=== PATIENT | male | born 1970 | race Caucasian/White ===

== ENCOUNTER 2022-07-31 21:42 | Emergency (ER) | payer OTHER, SELFPAY ==
--- NOTE | ~2022-07-31 | CT_ITS ---
EXAMINATION: CT CERVICAL SPINE WITHOUT CONTRAST CLINICAL INFORMATION: C5-6 radiculopathy COMPARISON: 09/05/2008 report TECHNIQUE: Multidetector helical imaging was performed through the cervical spine. Coronal and sagittal reformatted images were created. This CT examination was performed using dose optimization techniques as appropriate, variously including the following: *Automated exposure control *Adjustment of mA and/or kV according to patient size (this includes techniques or standardized protocols for targeted exams where dose is matched to indication/reason for exam; i.e. extremities or head) *Use of iterative reconstruction technique DLP: 464 mGy-cm FINDINGS: There is anatomic alignment of the vertebral bodies and posterior elements. There is degenerative change at the atlantodens articulation. Vertebral body heights are maintained. There is mild disc space narrowing at C3-C4 and C5-C6. Scattered endplate osteophytes throughout the cervical spine. Mild right-sided bony foraminal narrowing at C3-C4. Mild left-sided bony foraminal narrowing at C5-C6. No evidence of acute fracture. No prevertebral soft tissue swelling. Visualized portions of the lung apices demonstrate mild emphysema. The thyroid gland is unremarkable. CT/CT cervical spine wo IV con IMPRESSION: No acute findings of the cervical spine. Relatively mild degenerative changes as noted above, including mild left-sided bony foraminal narrowing at C5-C6.
--- NOTE | 2022-07-31 22:43 | ECG_ITS ---
Test Reason : right arm pain Blood Pressure : / mmHG Vent. Rate : 058 BPM Atrial Rate : 058 BPM P-R Int : 154 ms QRS Dur : 096 ms QT Int : 394 ms P-R-T Axes : 060 022 044 degrees QTc Int : 386 ms Sinus bradycardia Incomplete right bundle branch block Borderline ECG When compared with ECG of 02-FEB-2014 17:22, No significant change was found Referred By: Generic ED Physician Electronically Signed By:ASHLEY VILCHIS MD
[2022-07-31 22:48] VITALS: BP 143/74; PULSE 70; RESP 17; TEMP 36.8; O2SAT 98; BMI 24.4
[2022-07-31 23:02] LABS: Hematocrit 37.3 % (42.0-52.0); Hemoglobin 12.7 g/dl (14.0-18.0); Mean Platelet Volume 9.7 fL (9.4-12.4); Platelet Count 208 X10*3/uL (160-400); White Blood Count 7.8 X10*3/uL (4.8-10.8)
[2022-07-31 23:20] LABS: Alanine Aminotransferase 26 U/L (0-40); Albumin Level 4.1 g/dL (3.5-5.0); Alkaline Phosphatase 64 U/L (39-117); Anion Gap 13 (12-20); Aspartate Amino Transferase 35 U/L (5-37); Bilirubin Total < 0.2 mg/dL (0.0-1.0); Blood Urea Nitrogen 11 mg/dL (9-16); Calcium 9.3 mg/dL (8.4-10.2); Carbon Dioxide 27 mmol/L (22-29); Chloride 104 mmol/L (96-108); Creatinine Clr Calc Pharmacy 62.6; Estimated Glomerular Filt Rate 50; Glucose Random 96 mg/dL (60-115); Sodium 140 mmol/L (135-145); Total Protein 7.4 g/dL (6.5-8.0)
--- NOTE | 2022-08-01 00:07 | ED.GENADULT ---
HPI - General Adult General Chief complaint: General Medical Stated complaint: Right arm pain Time Seen by Provider: 08/01/22 00:06 Source: patient Mode of arrival: ambulatory Limitations: no limitations History of Present Illness HPI narrative: Patient complaining of pain in the right and neck pain for last few days feels tingling sensation no weakness no injuries Related Data Previous Rx's Medication Instructions Recorded prednisone 20 mg tablet 40 mg PO DAILY #10 tabs 08/01/22 tramadol 50 mg tablet 50 mg PO Q6H PRN pain #20 tabs 08/01/22 tramadol 50 mg tablet 50 mg PO Q8H PRN severe pain 08/01/22 (scale score 7-10) #20 tabs Allergies Allergy/AdvReac Type Severity Reaction Status Date / Time No Known Allergies Allergy Unverified 07/07/20 17:28 [No Known Allergies*] Review of Systems Review of Systems: Yes all other systems are reviewed and are negative [facility] Social History Social History Advance Directives: No Advance Directives Information Provided: No Physical Exam ED Vital Signs: Vital Signs - 24 hr 07/31/22 22:48 Temperature 98.2 F Pulse Rate 70 Respiratory Rate 17 Blood Pressure 143/74 H Pulse Oximetry 98 Oxygen Delivery Method Room Air BMI result Body Mass Index 24.4 Appearance: Alert. Oriented X3. No acute distress. Eyes: PERRLA, No Nystagmus ENT: Pharynx normal. Oral Mucosa moist Neck: Normal inspection. Neck supple. Paraspinal tenderness+ no midline tenderness CVS: Normal heart rate and rhythm. Pulses normal. Respiratory: No respiratory distress. Equal air entry bilateral, no wheezing/rales/rhonchi Abdomen: Soft and nontender. Bowel sounds are present, no mass palpable, no CVA tenderness Skin: Skin warm and dry. Normal skin color. Normal skin turgor. Extremities: No lower extremity edema. No calf tenderness Neuro: Oriented X 3. No motor deficit. No sensory deficit.No cerebellar signs , cranial nerves II-XII intact Medical Decision Making MDM Narrative Medical decision making narrative: Patient with right arm pain with arthritic changes likely patient has cervical radiculopathy from chronic arthritis advise follow-up with neurosurgeon Lab Data Result diagrams: 07/31/22 22:57 07/31/22 22:57 Labs: Lab Results 07/31/22 07/31/22 Range/Units 22:57 22:57 WBC 7.8 (4.8-10.8) X10*3/uL RBC 4.10 L (4.60-5.80) X10*6/uL Hgb 12.7 L (14.0-18.0) g/dl Hct 37.3 L (42.0-52.0) % MCV 91.0 (80.0-98.0) fL MCH 31.0 (27.0-33.0) pg MCHC 34.0 (31.0-36.0) g/dl RDW 12.0 (11.0-16.0) % Plt Count 208 (160-400) X10*3/uL MPV 9.7 (9.4-12.4) fL Absolute Nucleated RBC 0.000 (0.0-0.012) X10*3/uL Nucleated RBC % (auto) 0.0 (0.0-0.2) /100WBC Sodium 140 (135-145) mmol/L Potassium 4.0 (3.3-5.1) mmol/L Chloride 104 (96-108) mmol/L Carbon Dioxide 27 (22-29) mmol/L Anion Gap 13 (12-20) BUN 11 (9-16) mg/dL Creatinine 1.47 H (0.5-1.4) mg/dL Estim Creat Clear Calc 62.6 Estimated GFR 50 Random Glucose 96 (60-115) mg/dL Calcium 9.3 (8.4-10.2) mg/dL Total Bilirubin < 0.2 (0.0-1.0) mg/dL AST 35 (5-37) U/L ALT 26 (0-40) U/L Alkaline Phosphatase 64 (39-117) U/L Total Protein 7.4 (6.5-8.0) g/dL Albumin 4.1 (3.5-5.0) g/dL Discharge Plan Discharge Clinical Impression: Cervical radiculopathy at C5 Patient Disposition: Home, Self-Care Instructions: Cervical Radiculopathy (ED) Additional Instructions: Take pain medication as advised Prednisone as prescribed Follow with PCP if not better Prescriptions: New prednisone 20 mg tablet 40 mg PO DAILY Qty: 10 0RF tramadol 50 mg tablet 50 mg PO Q6H PRN (Reason: pain) Qty: 20 0RF tramadol 50 mg tablet 50 mg PO Q8H PRN (Reason: severe pain (scale score 7-10)) Qty: 20 0RF Interventions: ED Discharge Assessment Last Done: 08/01/22 01:34 Discharge Date/Time: 08/01/22 01:36
[2022-08-01 00:09] VITALS: BP 141/76; PULSE 73; RESP 16; O2SAT 97
[2022-08-01] MEDS: traMADoL HCL 50 MG TABLET PO (01:15)
[2022-08-01] MEDS: dexAMETHasone 2 MG TABLET 10 MG PO (01:16)
== END 2022-08-01 01:36 | disposition home or self-care (01) ==
PROVIDERS: Emergency Provider Internal Medicine
DX: M54.12 Radiculopathy, cervical region (principal); M54.2 Cervicalgia; M79.601 Pain in right arm; Z79.899 Other long term (current) drug therapy
CPT/HCPCS: 36415; 72125; 80053; 85027; 93005; 99284; J8540

== ENCOUNTER 2023-06-28 14:10 | Outpatient (REF) | payer MEDICAID, SELFPAY ==
[2023-06-28 16:10] LABS: Appearance Urine Clear; Color Urine Yellow; Glucose Urine UA Negative (Negative); Leukocyte Esterase Urine Negative (Negative); Nitrite Urine Negative (Negative); PH 6.5 (5.0-9.0); Specific Gravity - Urine 1.015 (1.005-1.025); UMIC TRIGGER UACC YES; Urine Blood Trace (Negative); Urine Ketones Negative (Negative); Urine Protein Negative (Neg-Trace)
[2023-06-28 16:10] LABS: MANUAL DIFF FLAG NO
[2023-06-28 16:16] LABS: Bacteria Urine None Seen (None Seen); Hyaline Casts Urine 0-2 /LPF (0-2); Squamous Epithelial Cell Urine 0-2 /HPF (0-2); WBC Urine 0-5 /HPF (0-5)
[2023-06-28 16:22] LABS: Estimated Average Glucose 105 mg/dL; Hemoglobin A1c % 5.3 % (<6.0)
[2023-06-28 16:24] LABS: Basophils Absolute Auto 0.1 X10*3/uL (0.0-0.2); Basophils Percent Auto 0.6 % (0-2); Eosinophils Absolute Auto 0.4 X10*3/uL (0.0-0.4); Eosinophils Percent Auto 5.1 % (0-4); Hematocrit 44.5 % (42.0-52.0); Hemoglobin 14.9 g/dl (14.0-18.0); Imm Gran Abs Auto 0.02 X10*3/uL (0.00-0.03); Imm Gran Pct Auto 0.2 % (0.0-0.4); Lymphocytes Percent Auto 23.7 % (20-40); Mean Corpuscular HGB Conc 33.5 g/dl (31.0-36.0); Mean Corpuscular Hemoglobin 30.6 pg (27.0-33.0); Mean Corpuscular Volume 91.4 fL (80.0-98.0); Mean Platelet Volume 10.4 fL (9.4-12.4); Monocytes Absolute Auto 0.7 X10*3/uL (0.1-1.2); Monocytes Percent Auto 8.1 % (2-11); Neutrophils Absolute Auto 5.2 x10*3/uL (2.0-8.3); Neutrophils Percent Auto 62.3 % (45-73); Platelet Count 233 X10*3/uL (160-400); Red Blood Count 4.87 X10*6/uL (4.60-5.80); White Blood Count 8.4 X10*3/uL (4.8-10.8)
[2023-06-28 16:27] LABS: INTERNATIONAL NORM RATIO 0.9 (0.9-1.1); Prothrombin Time 10.6 SEC (11.1-13.3)
[2023-06-28 16:37] LABS: Alanine Aminotransferase 60 U/L (0-40); Albumin Level 4.5 g/dL (3.5-5.0); Alkaline Phosphatase 99 U/L (39-117); Anion Gap 11 (12-20); Aspartate Amino Transferase 64 U/L (5-37); Bilirubin Total 0.7 mg/dL (0.0-1.0); Blood Urea Nitrogen 11 mg/dL (9-16); Calcium 10.1 mg/dL (8.4-10.2); Carbon Dioxide 27 mmol/L (22-29); Chloride 104 mmol/L (96-108); Cholesterol 130 mg/dL (<200); Estimated Glomerular Filt Rate > 60; Glucose Random 100 mg/dL (60-115); HDL Cholesterol 52 mg/dL (>40); LDL Cholesterol Calculated 56 mg/dL (<100); Potassium 4.1 mmol/L (3.3-5.1); Sodium 138 mmol/L (135-145); Total Protein 8.4 g/dL (6.5-8.0); Triglycerides 110 mg/dL (<150)
[2023-06-28 16:54] LABS: Vitamin D 25-OH Total 52.9 ng/mL (>30)
[2023-06-28 17:05] LABS: Prostate Specific Antigen 0.81 ng/mL (<0.05-4.0)
[2023-06-28 17:13] LABS: Vitamin B12 276 pg/mL (200-900)
[2023-06-29 09:20] LABS: ~Hepatitis C Antibody Reactive (Nonreactive)
[2023-06-29 09:46] LABS: HBc Num1 0.41 S/CO (0.00-0.79); HBsAGNum1 0.31 S/CO (0.00-0.99); HIV AB/AG Nonreactive (Nonreactive); HIV Num 1 0.05 S/CO (0.00-0.99); Hepatitis B Core Antibody Nonreactive (Nonreactive); Hepatitis B Surface Antigen Negative (Negative); ~Hepatitis B Surface Antibody REACTIVE (Nonreactive)
[2023-07-01 11:10] LABS: RPR Rapid Plasma Reagin NON-REACTIVE (NON-REACTIVE)
[2023-07-02 11:09] LABS: TS Negative Control Passed; TS Panel A 0; TS Panel B 0; TS Positive Control Passed; TSpotTB Negative (Negative)
[2023-07-03 17:24] LABS: HCV Log PCR 7.21 Log IU/mL (NOT DETECTED); HepC Viral Load 16100000 IU/mL (NOT DETECTED)
== END 2023-06-28 14:11 | disposition home or self-care (01) ==
LOC: HO.HHCL 14:10
PROVIDERS: Visit Provider Emergency Medicine
DX: Z12.5 Encounter for screening for malignant neoplasm of prostate (principal); Z11.4 Encounter for screening for human immunodeficiency virus [HIV]; R20.2 Paresthesia of skin
CPT/HCPCS: 36415; 80053; 80061; 81001; 82306; 82607; 83036; 84153; 84443; 85025; 85610; 86481; 86592; 86704; 86706; 86803; 87340; 87389; 87522

== ENCOUNTER 2023-08-19 15:29 | Outpatient (REF) | payer MEDICAID, SELFPAY ==
[2023-08-19 17:54] LABS: Alanine Aminotransferase 35 U/L (0-40); Albumin Level 4.5 g/dL (3.5-5.0); Alkaline Phosphatase 61 U/L (39-117); Anion Gap 13 (12-20); Aspartate Amino Transferase 33 U/L (5-37); Bilirubin Total 0.5 mg/dL (0.0-1.0); Blood Urea Nitrogen 7 mg/dL (9-16); Calcium 9.6 mg/dL (8.4-10.2); Carbon Dioxide 26 mmol/L (22-29); Chloride 104 mmol/L (96-108); Estimated Glomerular Filt Rate > 60; Glucose Random 99 mg/dL (60-115); Potassium 4.1 mmol/L (3.3-5.1); Sodium 139 mmol/L (135-145); Total Protein 8.4 g/dL (6.5-8.0)
[2023-08-19 17:58] LABS: Appearance Urine Clear; Color Urine Yellow; Glucose Urine UA Negative (Negative); Leukocyte Esterase Urine Negative (Negative); Nitrite Urine Negative (Negative); PH 6.5 (5.0-9.0); UMIC TRIGGER UA YES; Urine Blood Trace (Negative); Urine Ketones Negative (Negative); Urine Protein Negative (Neg-Trace)
[2023-08-19 18:01] LABS: Bacteria Urine None Seen (None Seen); Hyaline Casts Urine 0-2 /LPF (0-2); Squamous Epithelial Cell Urine 0-2 /HPF (0-2); WBC Urine 0-5 /HPF (0-5)
[2023-08-20 03:13] LABS: CT PCR NOT DETECTED (Not Detect.); NG PCR NOT DETECTED (Not Detect.)
[2023-08-20 08:21] LABS: Hepatitis A Antibody IgG REACTIVE (Nonreactive); ~Hepatitis A Antibody IgG 10.71 S/CO (0.00-0.99)
[2023-08-24 10:28] LABS: Hepatitis C Genotype 1a
[2023-08-24 16:28] LABS: FIB-ALT 30 U/L (9-46); FIB-Alpha-2-Macroglobulin 220 mg/dL (106-279); FIB-Apolipoprotein A1 165 mg/dL (94-176); FIB-GGT 39 U/L (3-95); FIB-Haptoglobin 155 mg/dL (43-212); FIB-Total Bilirubin 0.4 mg/dL (0.2-1.2); Liver Fibrosis Score 0.21; Liver Fibrosis Stage F0; Nec Inflam Act Grade A0; Nec Inflam Act Score 0.13
== END 2023-08-19 15:30 | disposition home or self-care (01) ==
LOC: HO.HHCL 15:29
PROVIDERS: Visit Provider Student in an Organized Health Care Education/Training Program
DX: B17.10 Acute hepatitis C without hepatic coma (principal)
CPT/HCPCS: 0353U; 36415; 80053; 81001; 81596; 86708; 87902

== ENCOUNTER 2023-09-26 09:19 | Outpatient (REF) | payer MEDICAID, SELFPAY ==
--- NOTE | ~2023-09-26 | US_ITS ---
EXAMINATION: US COMPLETE ABDOMEN WITH LIVER ELASTOGRAPHY CLINICAL INFORMATION: Acute appendicitis without hepatic coma. COMPARISON: None available. TECHNIQUE: Real-time imaging of the abdominal viscera. Noninvasive ultrasound liver fibrosis assessment is performed using Elke ElastPQ point quantification shear wave elastography (2D-SWE) with a C5-2 MHz transducer. Multiple elastography samples are obtained. FINDINGS: PANCREAS: Normal. The visualized pancreatic head and body are normal in appearance. The remainder of the pancreas is obscured from visualization by the overlying bowel gas. ABDOMINAL AORTA: The proximal and distal aortic segments are normal in caliber. The mid segment is obscured by overlapping bowel gas. INFERIOR VENA CAVA: Visualized portions are normal. LIVER: The liver demonstrates normal size, contour and increased echogenicity. No focal lesion or intrahepatic biliary duct dilatation. The right lobe measures 16.2 cm in length. The left lobe measures 9.3 cm in length. Portal flow is towards the liver (hepatopetal). Shear wave liver elastography median stiffness is 1.53 m/s (reference: normal median stiffness is 1.3 m/s or less). IQR/median stiffness to assess sampling precision is 0.22 (reference: good quality data set is IQR/median stiffness of 0.15 or less). GALLBLADDER: Normal. The gallbladder is physiologically distended without evidence of stones, sludge, polyps, wall thickening or pericholecystic fluid. COMMON BILE DUCT: Normal in caliber measuring 0.2 cm in diameter. RIGHT KIDNEY: Normal. No hydronephrosis. No renal calculi or focal parenchymal lesions. The kidney measures 9.3 cm in maximum dimension. LEFT KIDNEY: Normal. No hydronephrosis. No renal calculi or focal parenchymal lesions. The kidney measures 10.5 cm in maximum dimension. SPLEEN: Normal. The spleen measures 10.5 cm in maximum dimension. FREE FLUID: None. US/US abdomen comp w elastography IMPRESSION: 1. There is generalized increase in hepatic echotexture, consistent with fatty infiltration or hepatocellular disease. Please correlate clinically. No focal hepatic mass or intrahepatic biliary dilatation is seen. 2. Liver elastography: Although measurements appear to rule out compensated advanced chronic liver disease, there is statistical variability of the sampling which decreases accuracy. 3. Technically limited ultrasound examination of the abdominal great vessels. REFERENCE: Society of Radiologists in Ultrasound Liver Stiffness Thresholds (2020): LIVER STIFFNESS THRESHOLDS: *Liver Stiffness equal or less than 1.3 m/s: High probability of being normal. *Liver Stiffness less than 1.7 m/s: In the absence of other known clinical signs, rules out compensated advanced chronic liver disease. *Liver Stiffness 1.7-2.1 m/s: Suggestive of compensated advanced chronic liver disease but need further test for confirmation. *Liver Stiffness over 2.1 m/s: Rules in compensated advanced chronic liver disease. *Liver Stiffness over 2.4 m/s: Suggestive of clinically significant portal hypertension. QUALITY OF DATA SET: *IQR/Median value equal or less than 0.15 implies a quality data set. *IQR/Median value over 0.15 implies a poor quality data set. SIGNIFICANT CHANGE FROM PRIOR EXAM: Significant change if liver stiffness measurement is 10% or greater from prior exam. OTHER CONSIDERATIONS: The stage of liver fibrosis may be overestimated in the setting of acute hepatitis, liver inflammation, elevated liver function tests, hepatic vascular congestion, obstructive cholestasis, non-fasting state, and infiltrative diseases such as amyloidosis and lymphoma. In some patients with NAFLD, the liver stiffness thresholds for compensated advanced chronic liver disease may be lower. In causes other than viral hepatitis and NAFLD, liver stiffness thresholds are not well established.
== END 2023-09-26 09:20 | disposition home or self-care (01) ==
LOC: HO.US 09:19
PROVIDERS: Visit Provider Student in an Organized Health Care Education/Training Program
DX: B17.10 Acute hepatitis C without hepatic coma (principal)
CPT/HCPCS: 76705; 76981

== ENCOUNTER 2023-11-18 14:25 | Emergency (ER) | payer MEDICAID, SELFPAY ==
--- NOTE | ~2023-11-18 | XR_ITS ---
EXAMINATION: XR HUMERUS, SHOULDER , RIGHT CLINICAL INFORMATION: Fall COMPARISON: None available at the time of this dictation. TECHNIQUE: Frontal lateral and scapular Y-view right shoulder, frontal and lateral humerus upper and lower total of 7 views FINDINGS: BONES: There is a radiodense line through humeral head, cannot rule out nondisplaced impaction fracture injury. No displaced fractures. Included adjacent clavicle, scapula, elbow are intact. JOINTS: Glenohumeral joint is properly positioned. There is mild degenerative osteoarthritis of the acromioclavicular joint. SOFT TISSUE AND INCLUDED LUNG: Normal. XR/XR shoulder RT min 2V IMPRESSION: * Radiodense line through the humeral head, cannot rule out nondisplaced impaction fracture. Please correlate with area of tenderness, May consider correlation with follow-up cross-sectional imaging preferably MRI. If not performed consider follow-up x-ray in 3 days * No dislocation. * Degenerative osteoarthritis of AC joint.
--- NOTE | ~2023-11-18 | XR_ITS ---
EXAMINATION: XR HUMERUS, SHOULDER , RIGHT CLINICAL INFORMATION: Fall COMPARISON: None available at the time of this dictation. TECHNIQUE: Frontal lateral and scapular Y-view right shoulder, frontal and lateral humerus upper and lower total of 7 views FINDINGS: BONES: There is a radiodense line through humeral head, cannot rule out nondisplaced impaction fracture injury. No displaced fractures. Included adjacent clavicle, scapula, elbow are intact. JOINTS: Glenohumeral joint is properly positioned. There is mild degenerative osteoarthritis of the acromioclavicular joint. SOFT TISSUE AND INCLUDED LUNG: Normal. XR/XR humerus RT IMPRESSION: * Radiodense line through the humeral head, cannot rule out nondisplaced impaction fracture. Please correlate with area of tenderness, May consider correlation with follow-up cross-sectional imaging preferably MRI. If not performed consider follow-up x-ray in 3 days * No dislocation. * Degenerative osteoarthritis of AC joint.
[2023-11-18 14:28] VITALS: BP 137/84; PULSE 59; RESP 17; TEMP 36.3; O2SAT 99; BMI 25.1
--- NOTE | 2023-11-18 14:29 | ED.UPPEXIN ---
HPI - Extremity Injury (Upper) General Chief Complaint: Extremity Injury, Upper Stated Complaint: r arm inj fell 4 days ago Time Seen by Provider: 11/18/23 16:31 Source: patient Mode of arrival: ambulatory Limitations: no limitations History of Present Illness HPI narrative: 53-year-old male with no significant pmhx presents to the ED today for evaluation of right upper arm and shoulder pain s/p mechanical slip and fall while walking on an icy street 5 days ago. Upon slipping, he fell onto his right side. Denies head strike or LOC. Not on AC. Reports immediate pain to right upper arm. Has been taking [id number] NSAIDs and using icy hot without relief. Moving his right upper extremity exacerbates the pain. Pain is localized to his shoulder region. Denies fever, chills, N/V, neck or back pain, numbness, weakness, tingling of the right upper extremity. Denies new injury/trauma since the fall. Related Data Previous Rx's Medication Instructions Recorded prednisone 20 mg tablet 40 mg (2 x 20 mg) PO DAILY #10 tabs 08/01/22 tramadol 50 mg tablet 50 mg PO Q6H PRN pain #20 tabs 08/01/22 tramadol 50 mg tablet 50 mg PO Q8H PRN severe pain 08/01/22 (scale score 7-10) #20 tabs naproxen 500 mg tablet 500 mg PO Q8-12H PRN pain (scale 11/18/23 score 4-6) #30 tabs prednisone 50 mg tablet 50 mg PO DAILY 5 days #5 tabs 11/18/23 Allergies Allergy/AdvReac Type Severity Reaction Status Date / Time No Known Allergies Allergy Unverified 07/07/20 17:28 [No Known Allergies*] Review of Systems Review of Systems: Constitutional: No fever, chills, fatigue, night sweats, weight changes ENT/Mouth: No ear pain, hearing loss, nasal congestion, sinus pain, rhinorrhea, sore throat Eyes: No eye pain, swelling, redness, vision changes, discharge Cardio: No chest pain, palpitations, ALLEN, orthopnea, peripheral edema Pulm: No SOB, cough, sputum, wheezing, dyspnea, hemoptysis GI: No nausea, vomiting, hematemesis, abdominal pain, diarrhea, constipation, hematochezia, melena : No irregular bleeding, dysuria, frequency, urgency, hesitancy, hematuria, flank pain, urinary flow changes, urinary incontinence or retention MSK: No back pain, neck pain, joint pain, myalgias, +right arm/ shoulder pain Skin: No lesions, rashes Neuro: No weakness, numbness, paresthesias, LOC, dizziness, headache All other systems reviewed and are negative. [facility] Past Medical History Attestation statement: The following information was validated with the patient. Source: old records reviewed and nursing notes reviewed Social History Social History Advance Directives: No Advance Directives Information Provided: No Physical Exam Vital Signs: Vital Signs: Last Vital Signs Temp 97.3 F 11/18/23 14:28 Pulse 59 11/18/23 14:28 Resp 17 11/18/23 14:28 BP 137/84 11/18/23 14:28 Pulse Ox 99 11/18/23 14:28 O2 Del Method Room Air 11/18/23 14:28 BMI result Body Mass Index 25.1 Vital signs stable, afebrile Const: General: cooperative, healthy appearing, comfortable, no acute distress, alert and awake Orientation/consciousness: patient oriented x3 Limitations: no limitations HEENT: Head: Yes normal to inspection, Yes normocephalic and Yes atraumatic Eyes: General: appearance normal, both eyes and all related structures Conjunctivae: conjunctivae normal Sclerae: sclerae normal Pupils: Equal, round and reactive pupils present EOM: EOMs intact bilaterally Neck: Neck: Yes normal visual inspection and Yes full ROM Chest: Chest palpation & inspection: normal inspection of the chest, normal palpation of entire chest wall, no crepitus and no tenderness Resp: Effort & Inspection: normal respiratory effort and symmetric chest movement Auscultation: clear to auscultation bilaterally Cardio: Other: + 2+ radial and ulnar pulses Rate: regular rate Rhythm: regular rhythm GI: Inspection: Yes normal to inspection and No abdominal wall ecchymosis Palpation (GI): Soft to palpation and nontender Back/Spine/Pelvis: Other: No midline spinous tenderness or step off deformity. No paraspinal muscle tenderness. Skin: General skin exam: no rashes or lesions noted Neuro: Other: Strength 5/5 intact throughout.?Sensation intact to light touch.? Neurovascular intact distally.? General: patient oriented x3, gait normal and moves all extremities Cranial nerves: Yes CN's II-XII intact bilaterally and Yes Equal, round and reactive pupils present Extrem: Other: + no overlying joint effusions, deformity or cellulitic skin changes noted to the right upper extremity. Full ROM intact to right wrist, right elbow, right shoulder. Pain with extension of right elbow and abduction of right shoulder. Tender to palpation over the right glenohumeral joint without palpable deformity. 2+ radial and ulnar pulses bilaterally. Sensation intact. Capillary refill less than 2 seconds. General: Yes normal to inspection and Yes full ROM Course Course Course Narrative: 1645-- x-ray of right humerus and right shoulder showing radiodense line through the humeral head without definitive nondisplaced impaction fracture rule out. Given patient's point tenderness over the glenohumeral joint, will provide patient with sling, pain control, and ortho follow-up. Informed him of x-ray results and the need to follow-up with ortho for possible humeral head fracture. Patient has remained stable throughout ED visit today. Discussed worrisome signs and symptoms of when to return to the ED. All questions answered at this time. Patient is agreeable with disposition and stable for discharge. Medications Administered Discontinued Medications Generic Name Dose Route Start Last Admin Trade Name Freq PRN Reason Stop Dose Admin Ketorolac Tromethamine 30 mg 11/18/23 16:37 11/18/23 16:56 Ketorolac Tromethamine 30 Mg/Ml Vial IM 11/18/23 16:38 30 mg ONCE ONE Administration Medical Decision Making Medical Decision Making [facility] Narrative: 53-year-old male with no significant pmhx presents to the ED today for evaluation of right upper arm and shoulder pain s/p mechanical slip and fall while walking on an icy street 5 days ago. Vital signs stable. Afebrile. Patient is nontoxic appearing and in NAD. On exam, there are no overlying joint effusions, deformity or cellulitic skin changes noted to the right upper extremity. Full ROM intact to right wrist, right elbow, right shoulder. Pain with extension of right elbow and abduction of right shoulder. Tender to palpation over the right glenohumeral joint without palpable deformity. 2+ radial and ulnar pulses bilaterally. Sensation intact. Capillary refill less than 2 seconds. Clinical concern for humeral head fracture, shoulder dislocation, muscle sprain/ strain. Unlikely neurovascular compromise, compartment syndrome, threat to limb. Plan for x-rays, pain control and re-evaluation. Differential Diagnosis Differential Diagnoses: The differential diagnosis associated with the presentation includes As above. Admission/Observation Not indicated. Independent Interpretation I performed an independent interpretation of an: Plain X-Ray Interpretation: I have personally reviewed xray of right humerus and shoulder and agree with radiologist's interpretation. Radiology Impression Discussion of test interpretation with radiology: I have reviewed the radiologist's reading. Radiologist Impression: XR shoulder RT min 2V IMPRESSION: * Radiodense line through the humeral head, cannot rule out nondisplaced impaction fracture. Please correlate with area of tenderness, May consider correlation with follow-up cross-sectional imaging preferably MRI. If not performed consider follow-up x-ray in 3 days * No dislocation. * Degenerative osteoarthritis of AC joint. External Record Review External record reviewed: Inpatient record Prescription Management I considered prescription management with: Pain Medication and Other (steroid) Social Determinants Patient?s care significantly limited by Social Determinants of Health including: Other Social Determinant of Health Procedures Orthopedic Splinting/Casting Injury #1: Side: right Upper Extremity Injury Location: shoulder and upper arm Upper Extremity Immobilizer: sling/shoulder immobilizer Critical Care Time Critical Care Time Critical Care Time: No Discharge Plan Discharge Clinical Impression: Fracture of humeral head, closed, Fall Patient Disposition: Home, Self-Care Instructions: Arm Fracture in Adults (ED), How to Use a Sling (ED) Additional Instructions: The xray of your right arm today shows a possible fracture of your proximal humurus (upper right arm/ shoulder). You have been provided with a sling ot help immobilize your right arm/ shoulder. You may remove this to shower. Try to limit movement of the right arm. Naproxen as a pain medication that has been sent to your pharmacy. Take this as needed for pain. Do not take this with other NSAIDs such as ibuprofen as this may increase risk of GI bleed. Prednisone is a steroid that has been sent to your pharmacy. Take this for the next 5 days to help with any inflammation. You have been given contact information to an orthopedic doctor. CALL THEM TO MAKE AN APPOINTMENT. THEY WILL NOT CALL YOU. If symptoms persist or worsen, you began having numbness/tingling/weakness of your right upper extremity or pain worsens despite treatment, please return to the emergency department. In the case of an emergency call 911. [facility] [phone] La radiograf?a de bergeron brazo derecho de hoy muestra elizabeth posible fractura de bergeron h?jessica proximal (parte superior del brazo/hombro derecho). Se le osman proporcionado un cabestrillo para ayudar a inmovilizar bergeron brazo/hombro derecho. Puedes quitarlo para ducharte. Trate de limitar el movimiento del brazo derecho. Naproxeno praneeth analg?sico que osman sido enviado a bergeron farmacia. [place] esto seg?n sea necesario para el dolor. No tome esto con otros ABIGAIL praneeth ibuprofeno, ya que puede aumentar el riesgo de hemorragia gastrointestinal. La prednisona es un esteroide que se envi? a bergeron farmacia. T?lara tyra los pr?ximos 5 d?as para ayudar con cualquier inflamaci?n. Se le osman proporcionado informaci?n de contacto de un m?dico ortop?dico. LL?MALOS PARA PEDIR MONSE. NO TE LLAMAR?N. Si los s?ntomas persisten o empeoran, comenz? a tener entumecimiento/hormigueo/debilidad en la extremidad superior derecha o el dolor empeora a pesar del tratamiento, regrese al departamento de emergencias. En jaimie de emergencia llame al 911. [facility] [phone] Prescriptions: New naproxen 500 mg tablet 500 mg PO Q8-12H PRN (Reason: pain (scale score 4-6)) Qty: 30 0RF prednisone 50 mg tablet 50 mg PO DAILY 5 Days Qty: 5 0RF No Action prednisone 20 mg tablet 40 mg PO DAILY Qty: 10 0RF tramadol 50 mg tablet 50 mg PO Q6H PRN (Reason: pain) Qty: 20 0RF tramadol 50 mg tablet 50 mg PO Q8H PRN (Reason: severe pain (scale score 7-10)) Qty: 20 0RF Referrals: [facility] [Provider Group] - 5 days Interventions: ED Discharge Assessment Last Done: 11/18/23 16:56 Discharge Date/Time: 11/18/23 16:56 Print Language: Sinhala
[2023-11-18] MEDS: Ketorolac Tromethamine 30 MG/ML VIAL IM (16:56)
== END 2023-11-18 16:56 | disposition home or self-care (01) ==
LOC: HO.ED 16:48
PROVIDERS: Emergency Provider Internal Medicine
DX: S42.201A Unspecified fracture of upper end of right humerus, initial encounter for closed fracture (principal); W00.0XXA Fall on same level due to ice and snow, initial encounter; Y93.01 Activity, walking, marching and hiking; Y92.9 Unspecified place or not applicable; Y99.9 Unspecified external cause status; M25.511 Pain in right shoulder; M79.621 Pain in right upper arm
CPT/HCPCS: 73030; 73060; 96372; 99283; 99284; J1885

== ENCOUNTER 2024-03-02 14:11 | Outpatient (REF) | payer MEDICAID, SELFPAY ==
--- NOTE | ~2024-03-02 | XR_ITS ---
EXAMINATION: XR RIGHT HUMERUS XR RIGHT SHOULDER CLINICAL INFORMATION: Status post fall October 2023. Chronic pain. COMPARISON: 11/18/2023 TECHNIQUE: AP and lateral views of the right humerus. AP, Grashey, transscapular Y views of the right shoulder. FINDINGS: Right humerus: Normal alignment. No displaced fracture or dislocation. Right shoulder: Mild hypertrophic changes of the acromioclavicular joint. Acromioclavicular joint is intact. There is mild subacromial joint space narrowing. Glenohumeral joint space is maintained. No displaced fracture or dislocation. No abnormal soft tissue calcifications. XR/XR humerus RT IMPRESSION: No acute fracture. Subacromial joint space narrowing may be seen in the setting of underlying rotator cuff pathology.
--- NOTE | ~2024-03-02 | XR_ITS ---
EXAMINATION: XR RIGHT HUMERUS XR RIGHT SHOULDER CLINICAL INFORMATION: Status post fall October 2023. Chronic pain. COMPARISON: 11/18/2023 TECHNIQUE: AP and lateral views of the right humerus. AP, Grashey, transscapular Y views of the right shoulder. FINDINGS: Right humerus: Normal alignment. No displaced fracture or dislocation. Right shoulder: Mild hypertrophic changes of the acromioclavicular joint. Acromioclavicular joint is intact. There is mild subacromial joint space narrowing. Glenohumeral joint space is maintained. No displaced fracture or dislocation. No abnormal soft tissue calcifications. XR/XR shoulder RT min 2V IMPRESSION: No acute fracture. Subacromial joint space narrowing may be seen in the setting of underlying rotator cuff pathology.
[2024-03-02 17:29] LABS: MANUAL DIFF FLAG NO
[2024-03-02 17:32] LABS: Appearance Urine Clear; Color Urine Yellow; Glucose Urine UA Negative (Negative); Leukocyte Esterase Urine Negative (Negative); Nitrite Urine Negative (Negative); PH 5.5 (5.0-9.0); Urine Blood Negative (Negative); Urine Ketones Negative (Negative); Urine Protein Negative (Neg-Trace)
[2024-03-02 17:42] LABS: Basophils Absolute Auto 0.1 X10*3/uL (0.0-0.2); Basophils Percent Auto 0.9 % (0-2); Eosinophils Absolute Auto 0.3 X10*3/uL (0.0-0.4); Eosinophils Percent Auto 4.3 % (0-4); Hematocrit 44.7 % (42.0-52.0); Hemoglobin 14.7 g/dl (14.0-18.0); Imm Gran Abs Auto 0.02 X10*3/uL (0.00-0.03); Imm Gran Pct Auto 0.3 % (0.0-0.4); Lymphocytes Absolute Auto 2.1 X10*3/uL (1.2-4.9); Lymphocytes Percent Auto 30.9 % (20-40); Mean Corpuscular HGB Conc 32.9 g/dl (31.0-36.0); Mean Corpuscular Hemoglobin 30.8 pg (27.0-33.0); Mean Corpuscular Volume 93.7 fL (80.0-98.0); Mean Platelet Volume 10.1 fL (9.4-12.4); Monocytes Absolute Auto 0.5 X10*3/uL (0.1-1.2); Monocytes Percent Auto 8.1 % (2-11); Neutrophils Absolute Auto 3.7 x10*3/uL (2.0-8.3); Neutrophils Percent Auto 55.5 % (45-73); Platelet Count 239 X10*3/uL (160-400); Red Blood Count 4.77 X10*6/uL (4.60-5.80); Red Cell Distribution Width 13.1 % (11.0-16.0); White Blood Count 6.7 X10*3/uL (4.8-10.8)
[2024-03-02 17:52] LABS: Alanine Aminotransferase 28 U/L (0-40); Albumin Level 4.2 g/dL (3.5-5.0); Alkaline Phosphatase 74 U/L (39-117); Anion Gap 13 (12-20); Aspartate Amino Transferase 32 U/L (5-37); Bilirubin Total 0.3 mg/dL (0.0-1.0); Blood Urea Nitrogen 9 mg/dL (9-16); Calcium 9.6 mg/dL (8.4-10.2); Carbon Dioxide 25 mmol/L (22-29); Chloride 105 mmol/L (96-108); Estimated Glomerular Filt Rate > 60; Glucose Random 89 mg/dL (60-115); Potassium 4.1 mmol/L (3.3-5.1); Sodium 139 mmol/L (135-145); Total Protein 8.2 g/dL (6.5-8.0)
[2024-03-03 08:29] LABS: HBS Num1 > 1000.00 mIU/mL (0-7.99); HBc Num1 0.49 S/CO (0.00-0.79); HBsAGNum1 0.27 S/CO (0.00-0.99); HIV AB/AG Nonreactive (Nonreactive); HIV Num 1 0.04 S/CO (0.00-0.99); Hepatitis B Core Antibody Nonreactive (Nonreactive); Hepatitis B Surface Antigen Negative (Negative); ~Hepatitis B Surface Antibody REACTIVE (Nonreactive)
[2024-03-04 14:32] LABS: HCV Log PCR 7.49 Log IU/mL (NOT DETECTED)
== END 2024-03-02 14:12 | disposition home or self-care (01) ==
LOC: HO.HHCL 14:11
PROVIDERS: Visit Provider Student in an Organized Health Care Education/Training Program
DX: M79.601 Pain in right arm (principal); M25.511 Pain in right shoulder; G89.29 Other chronic pain; B17.10 Acute hepatitis C without hepatic coma
CPT/HCPCS: 36415; 73030; 73060; 80053; 81003; 85025; 86704; 86706; 87340; 87389; 87522

== ENCOUNTER 2024-09-29 16:11 | Outpatient (REF) | payer MEDICAID, SELFPAY ==
[2024-09-29 18:05] LABS: Alanine Aminotransferase 25 U/L (0-40); Albumin Level 4.1 g/dL (3.5-5.0); Alkaline Phosphatase 76 U/L (39-117); Aspartate Amino Transferase 30 U/L (5-37); Bilirubin Direct 0.2 mg/dL (0.0-0.5); Bilirubin Total 0.5 mg/dL (0.0-1.0); Total Protein 7.8 g/dL (6.5-8.0)
[2024-10-01 13:13] LABS: HCV Log PCR <1.18 NOT DETECTED Log IU/mL (NOT DETECTED); HepC Viral Load <15 NOT DETECTED IU/mL (NOT DETECTED)
== END 2024-09-29 16:12 | disposition home or self-care (01) ==
LOC: HO.HHCL 16:11
PROVIDERS: Visit Provider Student in an Organized Health Care Education/Training Program
DX: B17.10 Acute hepatitis C without hepatic coma (principal)
CPT/HCPCS: 36415; 80076; 87522

== ENCOUNTER 2024-11-12 15:29 | Outpatient (REF) | payer MEDICAID, SELFPAY ==
[2024-11-12 16:45] LABS: MANUAL DIFF FLAG NO
[2024-11-12 16:52] LABS: Basophils Absolute Auto 0.1 X10*3/uL (0.0-0.2); Eosinophils Absolute Auto 0.2 X10*3/uL (0.0-0.4); Eosinophils Percent Auto 2.7 % (0-4); Hematocrit 43.5 % (42.0-52.0); Hemoglobin 14.3 g/dl (14.0-18.0); Imm Gran Abs Auto 0.03 X10*3/uL (0.00-0.03); Imm Gran Pct Auto 0.5 % (0.0-0.4); Lymphocytes Percent Auto 32.1 % (20-40); Mean Corpuscular HGB Conc 32.9 g/dl (31.0-36.0); Mean Corpuscular Hemoglobin 30.6 pg (27.0-33.0); Mean Corpuscular Volume 92.9 fL (80.0-98.0); Mean Platelet Volume 10.1 fL (9.4-12.4); Monocytes Absolute Auto 0.5 X10*3/uL (0.1-1.2); Monocytes Percent Auto 7.5 % (2-11); Neutrophils Absolute Auto 3.5 x10*3/uL (2.0-8.3); Neutrophils Percent Auto 56.2 % (45-73); Platelet Count 252 X10*3/uL (160-400); Red Blood Count 4.68 X10*6/uL (4.60-5.80); Red Cell Distribution Width 12.6 % (11.0-16.0); White Blood Count 6.3 X10*3/uL (4.8-10.8)
[2024-11-12 17:15] LABS: Estimated Average Glucose 111 mg/dL; Hemoglobin A1C 131.2491 umol/L; Hemoglobin A1c % 5.5 % (<6.0); Total Hemoglobin (HGBA1C) 3613.4595 umol/L
[2024-11-12 17:21] LABS: Alanine Aminotransferase 22 U/L (0-40); Albumin Level 4.3 g/dL (3.5-5.0); Alkaline Phosphatase 78 U/L (39-117); Anion Gap 9 (12-20); Aspartate Amino Transferase 32 U/L (5-37); Bilirubin Total 0.4 mg/dL (0.0-1.0); Blood Urea Nitrogen 12 mg/dL (9-16); Calcium 9.4 mg/dL (8.4-10.2); Carbon Dioxide 26 mmol/L (22-29); Chloride 107 mmol/L (96-108); Cholesterol 175 mg/dL (<200); Estimated Glomerular Filt Rate > 60; Glucose Random 100 mg/dL (60-115); HDL Cholesterol 55 mg/dL (>40); LDL Cholesterol Calculated 101 mg/dL (<100); Potassium 4.2 mmol/L (3.3-5.1); Sodium 138 mmol/L (135-145); Total Protein 8.3 g/dL (6.5-8.0); Triglycerides 98 mg/dL (<150)
[2024-11-12 17:31] LABS: TSH reflex Free T4 1.02 uIU/mL (0.32-4.0); Vitamin D 25-OH Total 26.8 ng/mL (>30)
[2024-11-13 08:09] LABS: HIV AB/AG Nonreactive (Nonreactive); HIV Num 1 0.05 S/CO (0.00-0.99); ~HepC Num1 16.61 S/CO (0.00-0.79); ~Hepatitis C Antibody Reactive (Nonreactive)
[2024-11-16 14:19] LABS: HCV Log PCR <1.18 NOT DETECTED Log IU/mL (NOT DETECTED); HepC Viral Load <15 NOT DETECTED IU/mL (NOT DETECTED)
== END 2024-11-12 15:30 | disposition home or self-care (01) ==
LOC: HO.HHCL 15:29
PROVIDERS: Visit Provider Internal Medicine
DX: Z00.00 Encounter for general adult medical examination without abnormal findings (principal); Z11.59 Encounter for screening for other viral diseases
CPT/HCPCS: 36415; 80053; 80061; 82306; 83036; 84443; 85025; 86803; 87389; 87522

== ENCOUNTER 2025-03-05 09:55 | Outpatient (REF) | payer MEDICAID, SELFPAY ==
--- NOTE | ~2025-03-05 | CT_ITS ---
CLINICAL HISTORY: F17.210 - Nicotine dependence, cigarettes, uncomplicated CT lung cancer screening (LDCT) Comparison: None Technique: Axial CT images of the chest using low-dose technique. Referring provider counseled the patient on shared decision-making for LDCT screening. Additional counseling was provided on smoking cessation. Effective radiation dose total: DLP 43.8 mGycm, CTDIvol 1.2 mGy. Findings: There are multiple tiny nodules at the left lung apex measuring up to 3 mm in size, for example a 3 mm left upper lobe nodule on image 17. 5 mm left upper lobe nodule on image 33. Mild pulmonary emphysema. Coronary artery calcifications: Mild Limited upper abdomen: Unremarkable Other: None Impression: Category 2: Benign appearance or behavior. Continue annual screening. # #L2 ## Category 1: Normal; continue annual screening Category 2: Benign appearance or behavior, continue annual screening Category 3: Probably benign, [address] recommended Category 4A: Suspicious, [address] recommended; may consider PET/CT Category 4B: Suspicious, Additional diagnostics and/or tissue sampling recommended Category 4X: Suspicious, Additional diagnostics and/or tissue sampling recommended Category 0: Recalls (incomplete screen due to Incomplete coverage, Noise, Respiratory motion, Expiration, Obscured by acute abnormality) This document has been electronically signed by: Maddie Osorio MD on 03/05/2025 14:09:58
== END 2025-03-05 09:56 | disposition home or self-care (01) ==
LOC: HO.CT 09:55
PROVIDERS: PCP Student in an Organized Health Care Education/Training Program; Visit Provider Nurse Practitioner Family
DX: Z12.2 Encounter for screening for malignant neoplasm of respiratory organs (principal); F17.210 Nicotine dependence, cigarettes, uncomplicated
CPT/HCPCS: 71271; G0296

== ENCOUNTER 2025-03-05 10:08 | Outpatient (AMB) | payer MEDICAID, SELFPAY ==
--- NOTE | 2025-03-05 07:55 | A.OFFVIS_ITS ---
Intake Visit Reasons: LDCT Allergies No Known Allergies [No Known Allergies*] Allergy (Unverified 07/07/20 17:28) HPI HPI LDCT: Details: Initial visit for this 54yo smoker with a 50PYH. Patient started smoking at age 14 for 40 years at 1-2ppd. . Denies marijuana use. Denies second hand smoke exposure. Denies exposure to chemicals or substances like asbestos. . Reports family history of lung cancer. Father passed. Denies personal history of cancers. Denies chest CT in last year. . Denies recent travel outside the [place]. Denies recent respiratory illness or recent hospitalization for respiratory issues. Denies testing positive for COVID. Denies receiving COVID Vaccine. . Denies fever, chills, new/worsening cough, hemoptysis, hoarseness or dysphagia. Denies significant chest pain, significant dyspnea or unintentional weight loss. Patient Lung Cancer Screening Questionnaire reviewed with patient by provider. . Shared Decision Making Completed. Patient meets criteria. Discussed in detail with patient, the risk vs benefit of LDCT screening. Patient consents to proceed with scan. Discussed smoking cessation. 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 [facility] Medical History (Updated 03/05/25 @ 10:27 by Nina Rdz PA-C) Anxiety and depression Hepatitis C Nicotine dependence, cigarettes, uncomplicated Surgical History (Updated 03/05/25 @ 10:21 by Nina Rdz PA-C) History of tonsillectomy Family History (Updated 02/04/25 @ 15:54 by Nina Rdz PA-C) Father Lung cancer Social History (Updated 03/05/25 @ 10:27 by Nina Rdz PA-C) Patient Tobacco Use Status: Current everyday Tobacco user Years Smoked: (onset 14yo, 1-2ppd x 40yrs, 50+PYH) Assessment & Plan Assessment & Plan (1) Nicotine dependence, cigarettes, uncomplicated: Comment: (onset 14yo, 1-2ppd x 40yrs, 50+PYH) Code(s): F17.210 - Nicotine dependence, cigarettes, uncomplicated Category: Medical Plan: - SDM visit completed today in office. - Patient meets criteria for LDCT for lung cancer screening purposes and is asymptomatic. - Smoking cessation counseling offered. Patients can always call [phone]. - Will arrange for a LDCT scan of the chest for screening purposes at [facility]. - Risks, benefits, and alternatives were discussed in detail and the patient agrees to proceed. - Risks discussed include but are not limited to: radiation exposure, anxiety during testing and while awaiting results, false negatives, false positives and possibility of additional intervention such as further imaging or surgical procedures for benign disease. - Benefits are obviously detection of lung cancer at an early stage which can lead to improved outcomes. - Discussed the importance of screening program compliance with adherence to yearly LDCT scan as scheduled - or sooner interval scans for personalized screening regimen. - Discussed follow up plan. Our office will send a letter discussing results and if needed set up phone call and office visit based on CT findings. - Patient educated on results categorization and the management decisions for suspicious findings potentially found on the screening LDCT scan. Any patient with a Lung RADS score of 3 or 4 will be reviewed by a multidisciplinary team at [facility] to form a plan of action in regards to scan findings. - If further work up is warranted for a suspicious lung finding this will be followed by the Lung Cancer Screening program in conjunction with the Thoracic Surgery Department at [facility]. - A copy of the office note and LDCT will be sent to the patient's PCP - as well as documentation on any associated further plans of care. - Incidental findings on LDCT are the PCP's responsibility. These findings are indicated with an S finding on the LDCT Assessment. A note discussing the findings will be sent to the PCP who is then responsible for further management. - All questions answered.? Coding Level of Care Code Lung Cancer Screening G0296 Diagnoses Nicotine dependence, cigarettes, uncomplicated F17.210
--- OUTSIDE RECORDS SUMMARY | 2025-03-05 10:26 | XMS_ITS | Encounter Summary ---
Author Organization [employer] Address [address] [place] [address] Care Team Providers Care Dishwashing Machine Repairer Name Role Phone Luly Murphy MD Primary Care Pro vider Encounter Details Date Type Department Care Team ([facility] st Contact Info) Description 10/25/2023 Telephone [facility] [address] [place] [address] Luly Murphy MD [address] [place] [address] Social History Tobacco Use Types Packs/Day Years Used Date Smoking Tobacco: Every Day Cigarettes Passive Smoke Exposure: Current Comments:Tobacco smoker sinc e 13 years ago until now, in average 2 PQT a day ,smoking for 40 years PQT a year calc 79 Tried smoking with gums in the past and tried chantix w no SE Alcohol Use Standard Drinks/Week Comments Yes 0 (1 standard drink = 0.6 oz pure alcohol) drinks beer threee times aweek -6 to 10 cans Depression Answer Date Recorded Patient Health Questionnaire-9 Score 4 08/05/2023 Patient Health Questionnaire-9 Score 4 08/05/2023 Last PHQ-9: Questionnaire Data Not on file 1 Housing Stability Answer Date Recorded What is your housing situation today? I have nay strickland 08/05/[address] you li ve. Do you have problems with any of the following? None of the above 08/05/2023 Food Insecurity Answer Date Recorded Within the past 12 months, y ou worried that your food would run out before you got money to buy more: Never True 08/05/2023 Within the past 12 months,th e food you bought just didn't last and you didn't have enough money to get more: Never True Transportation Answer Date Recorded In the past 12 months, has l ack of transportation kept you from medical appts, meetings, work or from getting things needed for daily living? No 08/05/2023 Utilities Answer Date Recorded In the past 12 months, has t he electric, gas, oil or water company threatened to shut off services in your home? No 08/05/2023 Depression Answer Date Recorded Patient Health Questionnaire-2 Score 2 08/05/2023 Sex and Gender Information Value Date Recorded Sex Assigned at Male 08/20/2022 10:18 AM EDT Legal Sex Male 10:18 AM EDT Gender Identity Male 01/09/2023 4:06 PM EDT Sexual Orientation Straight 01/09/2023 4: 06 PM EDT documented as of this encounter Plan of Treatment Not on file documented as of this encounter Visit Diagnoses Not on filedocumented in this encounter Additional Health Concerns Assessment Noted Time PHQ-9 Depression Total Score: 4 08/05/20 23 1:25 PM EDT documented as of this encounter Care Teams Dishwashing Machine Repairer Relationship Specialty Start Date End Date Luly Murphy MD [address] [place] [phone] PCP - General Internal Medicine 08/05/23 documented as of this encounter
--- OUTSIDE RECORDS SUMMARY | 2025-03-05 10:26 | XMS_ITS | Clinical Summary ---
Author Organization [employer] Address [address] [place] [address] [address] [place] [address] Care Team Providers Care Dough Molder Name Role Phone Luly Murphy MD Primary Care Pro vider Allergies No known active allergies Medications * This document contains information received from the source organization and may not represent a complete record from that organization. Diclofenac Sodium 1 % gel Apply 1 Application topically if needed each day (right shoulder pain). 50 g 4 Active sofosbuvir-velp atasvir (Epclusa) 400-100 MG tabletIndicatio ns:Acute hepatitis C virus infection without hepatic coma Take 1 tablet by mouth Once per day. 30 tablet 2 4 Active lidocaine (Lidoderm) 5 % patch APPLY 1 PATCH TOPICALLY TO SKIN, LEAVE ON FOR 12 HOURS AND OFF FOR 12 HOURS DIRECTED 30 patch 1 4 Active ibuprofen 600 MG tabletIndicatio ns:Right hand pain Take 1 tablet (600 mg) by mouth every 8 (eight) hours if needed for mild pain for up to 21 doses. 21 tablet 5 Active lidocaine (Lidoderm) 5 % patchIndication s:Right hand pain Apply 1 patch topically Once per day. Remove & discard patch within 12 hours or as directed by . 30 patch 5 Active Active Problems Problem Noted Date Diagnosed Date Encounter for preventive care 11/12/2024 Assessment & Plan (11/12/2024 4:21 PM EST): See HPI Anxiety 11/12/2024 Assessment & Plan (11/12/2024 4:21 PM EST): Counseling done At the moment patient declines medications and therapy Right hand pain 11/12/2024 Assessment & Plan (11/12/2024 4:21 PM EST): Apply ice rest Ibuprofen as needed Lidocaine patch Smoker 11/12/2024 Assessment & Plan (11/12/2024 4:22 PM EST): Patient not ready to quit smoking Counseling done today Right shoulder pain 03/02/2024 Health care maintenance 08/06/2023 Hepatitis C 08/05/2023 Alcohol abuse 08/05/2023 Assessment & Plan (11/12/2024 4:21 PM EST): Counseling done Assessment & Plan (03/10/2024 10:05 AM EDT): During [facility] Consult Brad presenting with depressed mood, loss of interests/pleasure , change in appetite or weight reduce appetite, psychomotor retardation, trouble concentrating, thoughts of worthlessness or guilt, inappropriate guilt , difficulty concentrating and unsuccessful attempt/s to cut down/stop use, spending a lot of time getting/using/recovering from use , cravings and urges to use, continued use, even when it causes interpersonal problems, continued use even when hazardous or dangerous ; for a period of 18+ mo, for all symptoms in the context of financial concern. Brad is going thought stressful times, mostly due to financial problems. No other trigger identified for increase of sxs. PLAN: (check all that apply) Further services needed, but declined . Pt willing to try [facility] group. Declined OP referral. Tobacco dependence 04/04/2023 Depression 04/04/2023 Assessment & Plan (03/10/2024 10:05 AM EDT): During [facility] Consult Brad presenting with depressed mood, loss of interests/pleasure , change in appetite or weight reduce appetite, psychomotor retardation, trouble concentrating, thoughts of worthlessness or guilt, inappropriate guilt , difficulty concentrating and unsuccessful attempt/s to cut down/stop use, spending a lot of time getting/using/recovering from use , cravings and urges to use, continued use, even when it causes interpersonal problems, continued use even when hazardous or dangerous ; for a period of 18+ mo, for all symptoms in the context of financial concern. Brad is going thought stressful times, mostly due to financial problems. No other trigger identified for increase of sxs. PLAN: (check all that apply) Further services needed, but declined . Pt willing to try [facility] group. Declined OP referral. Encounters Date Type Department Care Team Description 01/01/2025 Population Health Risk Score [facility] ([facility]) Department [address] [place] [id number] Provider, Population Health Generic from Last 3 Months Immunizations Immunization Administration Dates Next Due HepB-CpG 01/29/2024,12/18/2023 Influenza injectable quadriv alent IIV4 with preservative 11/22/2017 Influenza injectable quadrivalent preservative f ree 08/05/2023 Influenza, IIV3, injectable 10/26/2014 Influenza, Split (incl. purified surface antigen ) 12/02/2013,12/12/2012 Influenza, seasonal, injectable, preservative fr ee 11/12/2024 Pfizer Covid-19 Vaccine 12+ 09/02/2023 Pfizer Covid-19 Vaccine 12+ Bivalent 01/09/2023 Pneumococcal Conjugate PCV 20 08/05/2023 Pneumococcal Polysaccharide PPSV23 12/02/2013 Tdap 08/05/2023,12/12/2012 Zoster, Recombinant 12/18/2023,03/27/2022 Family History Medical History Relation Name Comments Lung cancer Father Relation Name Status Comments Father Social History Tobacco Use Types Packs/Day Years Used Date Smoking Tobacco: Every Day Cigarettes Passive Smoke Exposure: Current Tobacco Cessation:Ready to Q uit: Not Asked; Counseling Given: Not Answered Comments:Tobacco smoker since 13 years ago until now, in average [...] Answer Date Recorded Patient Health Questionnaire-9 Score 0 11/12/2024 Patient Health Questionnaire-9 Score 0 11/12/2024 Last PHQ-9: Questionnaire Data Not on file 0 11/12/2024 Housing Stability Answer Date Recorded What is your housing situation today? I have nay strickland 11/02/[address] you li ve. Do you have problems with any of the following? None of the above 11/02/2024 Food Insecurity Answer Date Recorded Within the [...] Answer Date Recorded Patient Health Questionnaire-2 Score 0 11/12/2024 Internet Access Answer Date Recorded Internet Access Q1 Yes 11/02/2024 Internet Access Q2 Not on file 11/02/2024 Sex and Gender Information Value Date Recorded Sex Assigned at Male 08/20/2022 10:18 AM EDT Legal Sex Male 10:18 AM EDT Gender Identity Male 01/09/2023 4:06 PM EDT Sexual Orientation Straight 01/09/2023 4: 06 PM EDT Last Filed Vital Signs Vital Sign Reading Time Taken Comments Blood Pressure 138/76 11/12/2024 4:19 PM EST Pulse 80 11/12/2024 2:17 PM EST Temperature 36.2 ??C (97.2 ??F) 11/12/2024 2:17 PM ES T Respiratory Rate 20 11/12/2024 2:17 PM EST Oxygen Saturation 98% 11/12/2024 2:17 PM EST Inhaled Oxygen Concentration - - Weight 82.7 kg (182 lb 6.4 oz) 11/12/2024 2:17 P M EST Height 181 cm (5' 11.25 ) 11/12/2024 2:17 PM EST Body Mass Index 25.26 11/12/2024 2:17 PM EST Plan of Treatment Health Maintenance Due Date Last Done Comments CT Colonography 1969 Colonoscopy 1969 FIT 1969 FOBT 1969 Sigmoidoscopy 1969 Hepatitis A Vaccines (1 of 2 - Risk 2-dose series) 1988 COVID-19 Vaccine ( season) 2024 09/02/2023, 01/09/2023, 11/09/2021, Additional history exists SDOH Screening 11/02/2025 11/02/2024 Alcohol/Substance Use Screening 11/12/2025 11/12/2024 Depression Screening 11/12/2025 11/12/2024, 11/12/19 Tobacco Screening 11/12/2025 11/12/2024 Colorectal Cancer Screening 11/27/2027 FIT DNA/Cologuard 11/27/2027 11/27/2024 Lipid Panel 11/12/2029 11/12/2024, 06/28/2023 DTaP/Tdap/Td Vaccines (3 - Td or Tdap) 08/05/2033 08/05/2023, 12/12/2012 RSV Patients and Patients Aged 60 years or older (1 - 1-dose 75+ series) 2044 Pneumococcal Vaccine: 50+ Years Completed 08/05/2023, 12/02/2013 Zoster Vaccines Completed 12/18/2023, 03/27/2022 Hepatitis B Vaccines Completed 01/29/2024, 12/18/19 24 HIV Screening Completed 11/12/2024, 02/18, 06/28/2023 Influenza Vaccine Completed 11/12/2024, , 11/22/2017, Additional history exists HIB Vaccines Aged Out No longer eligi ble based on patient's age to complete this topic HPV Vaccines Aged Out No longer eligi ble based on patient's age to complete this topic IPV Vaccines Aged Out No longer eligi ble based on patient's age to complete this topic Meningococcal B Vaccine Aged Out No l onger eligible based on patient's age to complete this topic Meningococcal Vaccine Aged Out No douglas li eligible based on patient's age to complete this topic RSV under 20 months Aged Out No longe r eligible based on patient's age to complete this topic Rotavirus Vaccines Aged Out No longer eligible based on patient's age to complete this topic Procedures Procedure Name Priority Date/Time Associated Diagnosis Comments LAB COLOGUARD?? COLON CANCER SCREEN Routine 11/27/2024 11:25 AM EST Screening for colon cancer HIV 1/2 ANTIGEN/ANTIBODY, FOURTH GENERATION W/RFL Routine 11/12/2024 3:32 PM EST Encounter for preventive care LIPID PANEL, STANDARD Routine 11/12/2024 3:32 PM EST Encounter for preventive care from Last 3 Months or Most Recently Relevant to Health Maintenance Results * Cologuard?? colon cancer screening (11/27/2024 11:25 AM EST) Cologuard Result Negative Negative 12/02/19 3:59 AM EST [employer] (CLIA #:[id number]) Comment: NEGATIVE TEST RESULT. A negative Cologuard result indicates a low likelihood that a colorectal cancer (CRC) or advanced adenoma (adenomatous polyps with more advanced pre-malignant features) ??is present. The chance that a person with a negative Cologuard test has a colorectal cancer is less than 1 in 1500 (negative predictive value >99.9%) or has an ??advanced adenoma is less than ??5.3% (negative predictive value 94.7%). These data are based on a prospective cross-sectional study of 10,000 individuals at average risk for colorectal cancer who were screened with both Cologuard and colonoscopy. (Patsy Trevino et al, N Engl J Med 2014;370(14):1286- 1297) The normal value (reference range) for this assay is negative. COLOGUARD RE-SCREENING RECOMMENDATION: Periodic colorectal cancer screening is an important part of preventive healthcare for asymptomatic individuals at average risk for colorectal cancer. ??Following a negative Cologuard result, the [employer] Cancer Society and U.S. Multi-Society Task Force screening guidelines recommend a Cologuard re-screening interval of 3 years. References: [employer] Society Guideline for Colorectal Cancer Screening: https://www.cancer.org/cancer/ydkfp-tibeaq-qaxphh/fmspshhxp-xtntnjfav-rymfgla/ac s-rec ommendations.html.; Syed CABA, Alla NORWOOD, Denice JimenezK, Colorectal Cancer Screening: Recommendations for Physicians and Patients from the U.S. Multi-Society Task Force on Colorectal Cancer Screening , Am J Gastroenterology 2017; 112:9979-9368. TEST DESCRIPTION: Composite algorithmic analysis of stool DNA-biomarkers with hemoglobin immunoassay. ?? Quantitative values of individual biomarkers are not reportable and are not associated with individual biomarker result reference ranges. Cologuard is intended for colorectal cancer screening of adults of either sex, 45 years or older, who are at average-risk for colorectal cancer (CRC). Cologuard has been approved for use by the U.S. FDA. The performance of Cologuard was established in a cross sectional study of average-risk adults aged 50-84. Cologuard performance in patients ages 45 to 49 years was estimated by sub-group analysis of near-age groups. Colonoscopies performed for a positive result may find as the most clinically significant lesion: colorectal cancer [4.0%], advanced adenoma (including sessile serrated polyps greater than or equal to 1cm diameter) [20%] or non- advanced adenoma [31%]; or no colorectal neoplasia [45%]. These estimates are derived from a prospective cross-sectional screening study of 10,000 individuals at average risk for colorectal cancer who were screened with both Cologuard and colonoscopy. (Patsy Bonds al, N Engl J Med 2014;370(14):0175-4435.) Cologuard may produce a false negative or false positive result (no colorectal cancer or precancerous polyp present at colonoscopy follow up). A negative Cologuard test result does not guarantee the absence of CRC or advanced adenoma (pre-cancer). The current Cologuard screening interval is every 3 years. ([place] [employer] Society and U.S. Multi-Society Task Force). Cologuard performance data in a 10,000 patient pivotal study using colonoscopy as the reference method can be accessed at the following location: www.[employer]ello.[employer]osoft/results. Additional description of the Cologuard test process, warnings and precautions can be found at www.[employer]Your[employer].com. Stool specimen (specimen) 11/27/2024 11:25 AM EST 11/28/2024 12:24 PM EST Luly Brown MD LAB MOLECULAR DIAGNOS TICS ORDERABLES Final Result Performing Organization Address [facility] Co de Phone Number [employer] (CLIA #:[id number]) [address] [place] [address], [place] [phone] * HIV-1/2 Antigen and Antibodies, Fourth Generation, with Reflexes (11/12/2024 3:32 PM EST) HIV AB/AG Nonreactive Nonreactive [facility] Comment:HIV-1 p24 Ag and/or HIV-1/HIV-2 Ab not detected.A test result that is nonreactive does not exclude thepossibility of exposure to or infection with HIV-1 and/orHIV-2. Nonreactive results in this assay for individualswith prior exposure to HIV-1 and/or HIV-2 may be due toantigen and antibody levels that are below the limit ofdetection of this assay.The [employer] HIV Ag/Ab Combo assay result andsupplemental assay results should be interpreted inconjunction with the patient's clinical presentation,history and other laboratory results. If the results areinconsistent with clinical evidence, additional testing issuggested to confirm the result. Blood Venous blood specimen / Unknown 11/12/2024 3:32 PM EST 11/12/2024 4:36 PM EST Luly Brown MD LAB BLOOD ORDERABLES Final Result Performing Organization Address [facility] Co de Phone Number [facility] [address] [place] [phone] * (ABNORMAL) Lipid Panel, Standard (11/12/2024 3:32 PM EST) Triglycerides 98 <150 mg/dL [facility] Comment:Desirable Triglyceri de: less than 150 mg/dLBorderline High Triglyceride 150-199 mg/dLHigh Triglyceride: 200-499 mg/dLVery High Triglyceride: greater than or equal to 5OO mg/dL Cholesterol 175 <200 mg/dL [facility] Comment:Desirable Cholestero l: less than 200 mg/dLBorderline High Cholesterol: 200-239 mg/dLHigh Cholesterol: greater than 239 mg/dL LDL Cholesterol Calculated 101(H) <100 mg/dL [facility] Comment:Desirable LDL: less than 100 mg/dLNear Optimal/Above Optimal LDL: 110- 129 mg/dLBorderline High LDL: 130-159 mg/dLHigh LDL: 160-189 mg/dLVery High LDL: greater than or equal to 190 mg/dL HDL Cholesterol 55 >40 mg/dL [facility] Comment:Desirable HDL: great er than 40 mg/dL Note: This HDL assay may give artificially low results in patients with liver disease. Blood Venous blood specimen / Unknown 11/12/2024 3:32 PM EST 11/12/2024 4:36 PM EST Luly Brown MD LAB BLOOD ORDERABLES Final Result [facility] [address] [place] [address] [phone] from Last 3 Months or Most Recently Relevant to Health Maintenance Insurance [address] [place] [id number] [address] [facility] [address] [place] [address] [address] [place] [address] Care Teams Dough Molder Relationship Specialty Start Date End Date Luly Murphy MD [address] [place] [address] PCP - General Internal Medicine 08/05/23
--- OUTSIDE RECORDS SUMMARY | 2025-03-05 10:26 | XMS_ITS | Encounter Summary ---
Author Organization [employer] Address [address] [place] [address] Care Team Providers Care Microfiche Duplicator Name Role Phone Luly Murphy MD Primary Care Pro vider Reason for Visit * Reason Comments Med Refill Encounter Details Date Type Department Care Team ([facility] st Contact Info) Description 06/08/2024 Refill [facility] [address] [place] [address] Luly Murphy MD [address] [place] [address] Acute hepatitis C virus infection without hepatic coma Social History Tobacco Use Types Packs/Day Years [...] housing situation today? I have nay [place] 01/01/[address] you li ve. Do you have problems with any of the following? Mold;None of the above 01/01/2024 Food Insecurity Answer Date Recorded Within the [...] documented as of this encounter Visit Diagnoses Diagnosis Acute hepatitis C virus infection without hepatic coma documented in this encounter Additional Health Concerns Assessment Noted Time PHQ-9 Depression Total Score: 4 08/05/20 1:25 PM EDT documented as of this encounter Care Teams Microfiche Duplicator Relationship Specialty Start Date End Date Luly Murphy MD [address] [place] [id number] PCP - General Internal Medicine 08/05/23 documented as of this encounter
== END 2025-03-05 11:12 | disposition home or self-care (01) ==
LOC: HO.HPS 10:09
PROVIDERS: PCP Student in an Organized Health Care Education/Training Program; Referring Provider Student in an Organized Health Care Education/Training Program; Visit Provider Physician Assistant Medical
DX: F17.210 Nicotine dependence, cigarettes, uncomplicated (principal)
CPT/HCPCS: G0296

== ENCOUNTER → 2025-03-05 10:28 | Outpatient (BNV) | payer MEDICAID, SELFPAY | PROVIDERS: PCP Student in an Organized Health Care Education/Training Program; Visit Provider Radiology Diagnostic Radiology | DX: F17.210 Nicotine dependence, cigarettes, uncomplicated (principal) | CPT/HCPCS: 71271 ==